=== PATIENT | male | born 1980 | race Caucasian/White ===

== ENCOUNTER 2021-11-30 10:48 | Emergency (ER) | payer OTHER, SELFPAY ==
--- NOTE | ~2021-11-30 | XR_ITS ---
EXAMINATION: XR chest 2V DATE: 11/30/2021 11:59 INDICATION: Cough and congestion. TECHNIQUE: Frontal and lateral views of the chest were obtained. COMPARISON: None. FINDINGS: There is no pneumonia, pleural effusion, or pneumothorax. The heart size is normal. IMPRESSION: 1. No acute cardiopulmonary disease. Reviewed, dictated and finalized at location A.
[2021-11-30 11:07] VITALS: BP 145/87; PULSE 100; RESP 16; TEMP 37.4; O2SAT 100
--- NOTE | 2021-11-30 11:51 | ED.URI ---
HPI - URI/Sore Throat General Chief Complaint: Upper Respiratory Infection Stated Complaint: cough, runny nose Source: patient Mode of arrival: ambulatory Limitations: no limitations History of Present Illness HPI Narrative: 40-year-old male presents to [facility] with complaints of productive cough with yellow-colored phlegm for the past 2 weeks. Patient reports he also has noticed burning sensation to his chest with coughing. Patient was evaluated at [facility] 12 days ago and was prescribed a 10-day course of doxycycline and Tessalon for cough which she completed 2 days ago. Patient reports that his symptoms have not improved. Patient is a non-smoker. Patient denies shortness of breath, wheezing, fever, body aches or chills. Patient reports that he had to negative COVID test completed recently. 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 MD elicited complaint: cough Onset (ago): day(s) (10) Consistency: constant Description of mucous: yellow Able to tolerate fluids by mouth: Yes Exacerbating factors: nothing Associated symptoms: denies other symptoms Treatments prior to arrival: none Related Data Allergies Allergy/AdvReac Type Severity Reaction Status Date / Time amoxicillin Allergy Mild Unknown Verified 11/30/21 11:54 Penicillins Allergy Unknown Unknown Verified 11/30/21 11:54 Review of Systems Constitutional: Constitutional: Denies chills, Denies fatigue, Denies fever(s) and Denies weakness ENT: Denies vertigo and Denies dizziness Cardiovascular: Cardiovascular: Denies chest pain Respiratory: Respiratory: Reports cough, Denies dyspnea and Denies wheezing Gastrointestinal: Gastrointestinal: Denies abdominal pain, Denies diarrhea, Denies nausea and Denies vomiting Integumentary/Breasts: Skin/Breast: Denies rash Neurologic: Denies dizziness [facility] Past Medical History Medical History (Updated 11/30/21 @ 12:22 by Beth Jackson APRN) Psoriasis Family History Family History Father Family history of lung cancer Other Diabetes mellitus Family history of cardiovascular disease Family history of malignant neoplasm Social History Social History Smoking end date: 03/28/10 Alcohol intake: never Comments At time of signature, I agree with nursing past medical, surgical, social and family history. There is no relevant family history pertinent to the presenting complaint. Exam Const: General: healthy appearing Nutritional Appearance: well nourished Orientation/consciousness: patient oriented x3 Limitations: no limitations HENMT: Head: normal to inspection Ears: external ears normal Face and sinus: normal facial exam Mouth: Yes Normal oral and palatal mucosa present Teeth and gingiva: dentition normal Throat: posterior oropharynx normal and uvula midline Eyes: Conjunctivae: conjunctivae normal Neck: Neck: normal visual inspection Resp: Effort & Inspection: normal respiratory effort and not labored Auscultation: clear to auscultation bilaterally, no crackles, no rales, no rhonchi and no wheezes Other: Harsh nonproductive cough noted Cardio: Rate: regular rate Rhythm: regular rhythm Heart sounds: no murmurs Skin: General skin exam: normal color Rashes: no rashes Wounds: no wounds Neuro: General: patient oriented x3 Speech: normal speech Gait exam (Neuro): Normal gait present Psych: Mental Status: mental status grossly normal Affect: normal affect Attitude: cooperative Course Course Level of Care: Express Care Visit Vital Signs Vital signs: Vital Signs Temperature 37.4 C 11/30/21 11:07 Pulse Rate 100 11/30/21 11:07 Respiratory Rate 16 11/30/21 11:07 Blood Pressure 145/87 H 11/30/21 11:07 Pulse Oximetry 100 11/30/21 11:07 Temperature 37.4 C
== END 2021-11-30 12:25 | disposition home or self-care (01) ==
PROVIDERS: Emergency Provider Nurse Practitioner Family
DX: J40 Bronchitis, not specified as acute or chronic (principal); Z87.891 Personal history of nicotine dependence
CPT/HCPCS: 71046; 99203; G0463

== ENCOUNTER 2022-02-06 16:42 | Emergency (ER) | payer OTHER, SELFPAY ==
[2022-02-06 17:22] VITALS: BP 150/98; PULSE 86; RESP 16; TEMP 36.8; O2SAT 99
--- NOTE | 2022-02-06 18:02 | ED.GENADULT ---
HPI - General Adult General Chief complaint: Unspecified Stated complaint: unable to remove packing from I&D of abscess Time Seen by Provider: 02/06/22 17:06 History of Present Illness HPI narrative: 41-year-old male presents to the emergency room for evaluation of possible retained foreign object status post abscess I&D yesterday at his PCPs office. Patient states that he had an abscess that was drained from his left gluteal cleft, the PCP placed packing in the abscess after incision and drainage. Patient was instructed to remove the packing today, irrigate the cavity, and then place more packing with a Q-tip. Patient removed the Band-Aid and was unable to locate any of the packing. Related Data Home Medications Medication Instructions Recorded Confirmed ixekizumab 80 mg/mL subcutaneous See Rx Instructions .Route .COMPLEX 11/30/21 11/30/21 auto-injector (Taltz Autoinjector) Allergies Allergy/AdvReac Type Severity Reaction Status Date / Time amoxicillin Allergy Mild Unknown Verified 11/30/21 11:54 Penicillins Allergy Unknown Unknown Verified 11/30/21 11:54 Review of Systems Review of Systems: CONSTITUTIONAL: Denies fever, chills, or sweats. EYES: Denies visual changes, redness, or discharge. ENT: Denies rhinorrhea, congestion, sore throat, or otalgia. CARDIOVASCULAR: Denies chest pain, palpitations, or edema. RESPIRATORY: Denies cough or dyspnea. GASTROINTESTINAL: Denies abdominal pain, nausea, vomiting, or diarrhea. GENITOURINARY: Denies dysuria or hematuria. SKIN: Denies rash or itching. MUSCULOSKELETAL: Denies back pain, joint pain, or myalgia. NEUROLOGIC: Denies headache, numbness, dizziness, or weakness. PSYCHIATRIC: Denies anxiety or depression. [facility] Past Medical History Medical History Psoriasis Family History Family History Father Family history of lung cancer Other Diabetes mellitus Family history of cardiovascular disease Family history of malignant neoplasm Social History Social History Smoking end date: 03/28/10 Alcohol intake: never Exam Narrative: GENERAL: Well-appearing, well-nourished, no physical limitations, and in no acute distress. HEAD: Normocephalic, atraumatic. EYES: Conjunctivae normal, PERRLA and EOMI. CHEST: Clear to auscultation. No respiratory distress. No wheezes rales or rhonchi. HEART: Regular rate and rhythm. No murmur heard. Normal peripheral pulses. EXTREMITIES: Normal range of motion. No edema. No clubbing or cyanosis SKIN: Purulent material noted with surrounding induration to the left gluteal cleft. No surrounding erythema or signs of lymphangitis. NEURO: No focal deficits. Alert and oriented x3. MAEW. CN's II-XI intact bilaterally, normal gait PSYCH: Cooperative. Normal mood and affect. Course Course Emergency Course: Abscess was irrigated with 200 cc normal saline. Cavity was probed following irrigation. No retained foreign object was identified. Vital Signs Vital signs: Vital Signs Temperature 36.8 C 02/06/22 17:22 Pulse Rate 86 02/06/22 17:22 Respiratory Rate 16 02/06/22 17:22 Blood Pressure 150/98 H 02/06/22 17:22 Pulse Oximetry 99 02/06/22 17:22 Oxygen Delivery Room Air 02/06/22 17:22 Temperature 36.8 C 02/06/22 17:22 Pulse Rate 86 02/06/22 17:22 Respiratory Rate 16 02/06/22 17:22 Blood Pressure 150/98 H 02/06/22 17:22 Pulse Oximetry 99 02/06/22 17:22 Oxygen Delivery Room Air 02/06/22 17:22 Medical Decision Making Vital Signs Vital Signs: Vital Signs Temperature 36.8 C 02/06/22 17:22 Pulse Rate 86 02/06/22 17:22 Respiratory Rate 16 02/06/22 17:22 Blood Pressure 150/98 H 02/06/22 17:22 Pulse Oximetry 99 02/06/22 17:22 Oxygen Delivery Room Air 02/06/22 17:22 Temperature 36.8 C 02/06/22 17:22
== END 2022-02-06 18:22 | disposition home or self-care (01) ==
PROVIDERS: Emergency Provider Nurse Practitioner Family; PCP Internal Medicine
DX: L02.31 Cutaneous abscess of buttock (principal)
CPT/HCPCS: 99282

== ENCOUNTER 2022-08-26 11:23 | Emergency (ER) | payer OTHER, SELFPAY ==
--- NOTE | ~2022-08-26 | XR_ITS ---
EXAMINATION: XR hand LT 2V DATE: 08/26/2022 13:31 INDICATION: Left index finger abscess. TECHNIQUE: 3 views of left hand were obtained. COMPARISON: Left hand fourth digit radiographs 10/23/2005 FINDINGS: Bone alignment is normal. No fracture. There is mild osteoarthritis of first metacarpophala ngeal joint, first interphalangeal joint, third proximal interphalangeal joint, and second distal int erphalangeal joint. IMPRESSION: 1. No evidence of osteomyelitis. 2. Mild polyarticular osteoarthritis. Reviewed, dictated and finalized at location A.
[2022-08-26 11:24] VITALS: BP 137/92; PULSE 83; RESP 18; TEMP 36.8; O2SAT 99
--- NOTE | 2022-08-26 13:13 | ED.GENADULT ---
HPI - General Adult General Chief complaint: Skin/Abscess/Foreign Body Stated complaint: abscess on left index finger Time Seen by Provider: 08/26/22 11:33 Source: patient Mode of arrival: ambulatory Limitations: no limitations History of Present Illness HPI narrative: This is a 41-year-old male presents to the ED with chief complaint of a lesion to the left dorsal index finger. Patient states that he has had pain and erythema and swelling to this area for the past 2 or 3 days. He was initially seen by his primary care doctor who did not feel comfortable doing a digital block draining the lesion which they felt was an abscess. It should be noted that patient is taking a biologic for his psoriasis which makes him immunocompromised. He denies any fevers, chills, systemic symptoms. Related Data Home Medications Medication Instructions Recorded Confirmed ixekizumab 80 mg/mL subcutaneous See Rx Instructions .Route .COMPLEX 11/30/21 11/30/21 auto-injector (Taltz Autoinjector) Allergies Allergy/AdvReac Type Severity Reaction Status Date / Time amoxicillin Allergy Mild Unknown Verified 08/26/22 11:23 Penicillins Allergy Unknown Unknown Verified 08/26/22 11:23 Review of Systems Review of Systems: CONSTITUTIONAL: Denies fever, chills, or sweats. EYES: Denies visual changes, redness, or discharge. ENT: Denies rhinorrhea, congestion, sore throat, or otalgia. CARDIOVASCULAR: Denies chest pain, palpitations, or edema. RESPIRATORY: Denies cough or dyspnea. GASTROINTESTINAL: Denies abdominal pain, nausea, vomiting, or diarrhea. GENITOURINARY: Denies dysuria or hematuria. SKIN: See HPI MUSCULOSKELETAL: Denies back pain, joint pain, or myalgia. NEUROLOGIC: Denies headache, numbness, dizziness, or weakness. PSYCHIATRIC: Denies anxiety or depression. [facility] Past Medical History Medical History Psoriasis Family History Family History Father Family history of lung cancer Other Diabetes mellitus Family history of cardiovascular disease Family history of malignant neoplasm Social History Social History Smoking end date: 03/28/10 Alcohol intake: never Exam Narrative: GENERAL: Well-appearing, well-nourished, and in no acute distress. HEAD: Normocephalic, atraumatic. EYES: PERRLA and EOMI. ENT: Nares clear, no rhinorrhea or epistaxis. Mucous membranes moist. Oropharynx without tonsillar hypertrophy exudate or other lesions. NECK: Supple. No adenopathy or masses. CHEST: No respiratory distress. Clear to auscultation. No wheezes rales or rhonchi HEART: Regular rate and rhythm. No murmur heard. Normal peripheral pulses. ABDOMEN: Soft, nontender, nondistended, normal active bowel sounds. MSK: Left hand: He has full range of motion of the hand. Marked tenderness to the area of erythema to the dorsal left index finger proximally. Right hand: Benign MSK exam is otherwise benign. Normal range of motion. No edema. SKIN: Area of erythema and induration around 2 cm x 2 cm to the dorsal left index finger. No fluctuance. NEURO: Alert and oriented x3. No focal deficits. PSYCH: Normal mood and affect. Course Vital Signs Vital signs: Vital Signs Temperature 98.3 F 08/26/22 11:24 Pulse Rate 83 08/26/22 11:24 Respiratory Rate 18 08/26/22 11:24 Blood Pressure 137/92 H 08/26/22 11:24 Pulse Oximetry 99 08/26/22 11:24 Oxygen Delivery Room Air 08/26/22 11:24 Temperature 98.3 F 08/26/22 11:24 Pulse Rate 83 08/26/22 11:24 Respiratory Rate 18 08/26/22 11:24 Blood Pressure 137/92 H 08/26/22 11:24 Pulse Oximetry 99 08/26/22 11:24 Oxygen Delivery Room Air 08/26/22 11:24 Procedures Abscess I/D hand: Date of Incision: 08/26/22 Time of Incision: 13:10 Side (if applicable): left (Index fin
[2022-08-26] MEDS: LIDOCAINE HCL 1% LOCAL INJ 10 ML VIAL INFILTRATE (14:20)
== END 2022-08-26 14:54 | disposition home or self-care (01) ==
PROVIDERS: Emergency Provider Physician Assistant; PCP Internal Medicine
DX: L02.512 Cutaneous abscess of left hand (principal); L40.9 Psoriasis, unspecified
CPT/HCPCS: 26010; 73120; 99283